=== PATIENT | female | born 1970 | race Caucasian/White ===

== ENCOUNTER 2019-09-08 07:57 | Outpatient (CLI) | payer OTHER ==
[2019-09-08 09:00] LABS: BASOPHILS # (AUTO) 0.2 K/uL (0.00-0.22); BASOPHILS % (AUTO) 1.4 % (0.0-2.0); EOSINOPHILS # (AUTO) 0.2 K/uL (0-0.4); EOSINOPHILS % (AUTO) 1.9 % (0.0-4.0); HEMATOCRIT 41.5 % (36-48); HEMOGLOBIN 14.5 g/dL (12.0-16.0); LYMPHOCYTES # (AUTO) 1.8 K/uL (2.5-16.5); LYMPHOCYTES % (AUTO) 16.3 % (20.5-51.1); MEAN CORPUSCULAR HEMOGLOBIN 29 pg (27-31); MEAN CORPUSCULAR HGB CONC 35 g/dL (33-37); MEAN CORPUSCULAR VOLUME 82.4 fL (80-94); MONOCYTES # (AUTO) 0.6 K/uL (0.8-1.0); MONOCYTES % (AUTO) 5.3 % (1.7-9.3); NEUTROPHILS # (AUTO) 8.5 K/uL (1.8-7.7); NEUTROPHILS % (AUTO) 75.1 % (42.2-75.2); PLATELET COUNT (AUTO) 323 K/uL (140-450); RED BLOOD CELL COUNT(AUTO) 5.04 MIL/uL (4.20-5.40); RED CELL DISTRIBUTION WIDTH 13.3 % (11.6-13.7); WHITE BLOOD COUNT (AUTO) 11.3 K/uL (4.8-10.8)
[2019-09-08 09:17] LABS: APPEARANCE,URINE CLEAR (CLEAR); BILIRUBIN,URINE NEGATIVE (NEGATIVE); BLOOD, URINE NEGATIVE (NEGATIVE); COLOR,URINE YELLOW (YELLOW); LEUKOCYTE ESTERASE ,URINE NEGATIVE (NEGATIVE); NITRITE, URINE NEGATIVE (NEGATIVE); PH,URINE 5.5 (5.0-9.0); UGLUCOSE NEGATIVE (NEGATIVE)
[2019-09-08 09:22] LABS: ALBUMIN 3.6 g/dL (3.4-5.0); ANION GAP 13.5 (8-16); CARBON DIOXIDE 26.2 mmol/L (21-32); CREATININE 0.7 mg/dL (0.6-1.3); POTASSIUM 3.7 mmol/L (3.5-5.1); TOTAL BILIRUBIN 0.5 mg/dL (0.0-1.0); URIC ACID 8.4 mg/dL (2.6-7.2)
[2019-09-08 09:34] LABS: CHOL/HDL RATIO 5.1 (1-4.5)
[2019-09-09 15:06] LABS: T4 (THYROXINE) 8.7 ug/dL (4.5-12.0)
[2019-09-10 09:08] LABS: FOLLICLE STIMULATING HORMONE 3.3 mIU/mL (.)
== END 2019-09-08 22:51 | disposition home or self-care (01) ==
LOC: MLB 07:57
DX: I10 Essential (primary) hypertension (principal)
CPT/HCPCS: 36415; 80053; 81003; 82607; 83001; 83036; 84436; 84480; 84550; 85025; 85651; 86038; 86140

== ENCOUNTER 2020-04-19 05:33 | Emergency (ER) | payer OTHER ==
[~2020-04-19] VITALS: Ht 160 cm; Wt 79.1 kg
[2020-04-19 05:39] VITALS: BP 143/104
--- NOTE | 2020-04-19 05:46 | NUR ---
Patient ambulated to bed 7
[2020-04-19] MEDS ORDERED: KETOROLAC 15 MG/ML VIAL IM ONE (06:00)
[2020-04-19] MEDS ORDERED: ACETAMINOPHEN EXTRA STRENGTH 500 MG TAB PO ONE (06:00)
--- NOTE | 2020-04-19 06:00 | NUR ---
pt has been having r flank pain 8/10 x 4 days. pain is aching and sharp. denies any uti symptoms. afebrile, +n/+d. denies any injury to area, ststes the pain has gotten worse over the last day. nka hx - htn
--- NOTE | 2020-04-19 06:10 | NUR ---
pt taken to ct via wheelchair
--- NOTE | 2020-04-19 06:36 | NUR ---
ua walked to lab
--- NOTE | 2020-04-19 06:42 | NUR ---
blood collected and taken to lab
--- NOTE | 2020-04-19 06:46 | NUR ---
pt resting more comfortably at this time, states pain is down to 4/10.
[2020-04-19 06:50] LABS: BASOPHILS # (AUTO) 0.1 K/uL (0.00-0.22); BASOPHILS % (AUTO) 0.5 % (0.0-2.0); EOSINOPHILS # (AUTO) 0.2 K/uL (0-0.4); EOSINOPHILS % (AUTO) 1.8 % (0.0-4.0); HEMATOCRIT 39.4 % (36-48); HEMOGLOBIN 13.6 g/dL (12.0-16.0); LYMPHOCYTES # (AUTO) 1.9 K/uL (2.5-16.5); LYMPHOCYTES % (AUTO) 17.3 % (20.5-51.1); MEAN CORPUSCULAR HEMOGLOBIN 29 pg (27-31); MEAN CORPUSCULAR HGB CONC 35 g/dL (33-37); MEAN CORPUSCULAR VOLUME 83.8 fL (80-94); MONOCYTES # (AUTO) 0.9 K/uL (0.8-1.0); MONOCYTES % (AUTO) 7.9 % (1.7-9.3); NEUTROPHILS % (AUTO) 72.5 % (42.2-75.2); PLATELET COUNT (AUTO) 269 K/uL (140-450); RED CELL DISTRIBUTION WIDTH 13.6 % (11.6-13.7); WHITE BLOOD COUNT (AUTO) 11.1 K/uL (4.8-10.8)
[2020-04-19 06:52] LABS: APPEARANCE,URINE CLEAR (CLEAR); BILIRUBIN,URINE NEGATIVE (NEGATIVE); BLOOD, URINE NEGATIVE (NEGATIVE); COLOR,URINE YELLOW (YELLOW); LEUKOCYTE ESTERASE ,URINE NEGATIVE (NEGATIVE); NITRITE, URINE NEGATIVE (NEGATIVE); PH,URINE 5.5 (5.0-9.0); UGLUCOSE NEGATIVE (NEGATIVE)
[2020-04-19 07:06] LABS: ALBUMIN 3.3 g/dL (3.4-5.0); ANION GAP 12.1 (8-16); CARBON DIOXIDE 23.7 mmol/L (21-32); CREATININE 0.5 mg/dL (0.6-1.3); POTASSIUM 3.8 mmol/L (3.5-5.1); TOTAL BILIRUBIN 0.5 mg/dL (0.0-1.0)
--- NOTE | 2020-04-19 07:09 | NUR ---
report given to jeffery cox
--- NOTE | 2020-04-19 07:15 | NUR ---
REPORT RECEIVED FROM HUSEYIN BENTON, TRANSFER OF CARE AT THIS TIME
--- NOTE | 2020-04-19 07:25 | NUR ---
Patient discharged with v/s stable. Written and verbal after care instructions about flank pain given and explained. Patient alert, oriented and verbalized understanding of instructions. Ambulatory with steady gait. All questions addressed prior to discharge. ID band removed. Patient advised to follow up with PMD. Rx of naprosyn given. Patient educated on indication of medication including possible reaction and side effects. Opportunity to ask questions provided and answered.
[2020-04-19 07:30] VITALS: BP 124/90
== END 2020-04-19 07:25 | disposition home or self-care (01) ==
LOC: MED 05:33
DX: R10.9 Unspecified abdominal pain (principal); M79.10 Myalgia, unspecified site
CPT/HCPCS: 36415; 74176; 80053; 81003; 83690; 85025; 96372; 99284; J1885

== ENCOUNTER 2020-12-06 07:12 | Outpatient (CLI) | payer OTHER ==
[2020-12-06 07:39] LABS: HEMATOCRIT 41.2 % (36-48); HEMOGLOBIN 14.1 g/dL (12.0-16.0); MEAN CORPUSCULAR HEMOGLOBIN 29 pg (27-31); MEAN CORPUSCULAR HGB CONC 34 g/dL (33-37); MEAN CORPUSCULAR VOLUME 84.4 fL (80-94); PLATELET COUNT (AUTO) 281 K/uL (140-450); RED BLOOD CELL COUNT(AUTO) 4.88 MIL/uL (4.20-5.40); RED CELL DISTRIBUTION WIDTH 13.5 % (11.6-13.7); WHITE BLOOD COUNT (AUTO) 11.3 K/uL (4.8-10.8)
[2020-12-06 08:33] LABS: ALBUMIN 3.5 g/dL (3.4-5.0); ANION GAP 11.5 (8-16); BILIRUBIN,DIRECT 0.1 mg/dL (0.0-0.3); CARBON DIOXIDE 29.3 mmol/L (21-32); CHOL/HDL RATIO 5.1 (1-4.5); CREATININE 0.6 mg/dL (0.6-1.3); POTASSIUM 3.8 mmol/L (3.5-5.1); THYROID STIMULATING HORMONE 4.02 uIU/mL (0.34-3.74); TOTAL BILIRUBIN 0.4 mg/dL (0.0-1.0)
[2020-12-06 09:21] LABS: BILIRUBIN,URINE NEGATIVE (NEGATIVE); BLOOD, URINE NEGATIVE (NEGATIVE); COLOR,URINE YELLOW (YELLOW); LEUKOCYTE ESTERASE ,URINE NEGATIVE (NEGATIVE); NITRITE, URINE NEGATIVE (NEGATIVE); UGLUCOSE NEGATIVE (NEGATIVE)
[2020-12-06 09:24] LABS: APPEARANCE,URINE SLIGHTLY HAZY (CLEAR)
[2020-12-06 09:31] LABS: EOSINOPHILS % (MANUAL) 2 % (0-4); LYMPHOCYTES % (MANUAL) 15 % (20-46); MONOCYTES % (MANUAL) 3 % (5-12)
[2020-12-07 08:06] LABS: FOLLICLE STIMULATING HORMONE 4.7 mIU/mL (.); LUTEINIZING HORMONE 3.8 mIU/mL (.); T4 (THYROXINE) 7.5 ug/dL (4.5-12.0)
== END 2020-12-06 20:50 | disposition home or self-care (01) ==
LOC: MLB 07:12
DX: M25.562 Pain in left knee (principal); I10 Essential (primary) hypertension; E55.9 Vitamin D deficiency, unspecified; E78.5 Hyperlipidemia, unspecified; D64.9 Anemia, unspecified
CPT/HCPCS: 36415; 73562; 80053; 80076; 81003; 82306; 83001; 83002; 83036; 83540; 84436; 84443; 84480; 85025

== ENCOUNTER 2021-07-04 07:33 | Outpatient (CLI) | payer OTHER | END 2021-07-04 21:03 | disposition home or self-care (01) | LOC: MLB 07:33 | PROVIDERS: ATTEND Family Medicine | DX: I10 Essential (primary) hypertension (principal) ==